=== PATIENT | female | born 1990 | race Caucasian/White ===

== ENCOUNTER 2018-03-04 11:08 | Inpatient (IN) | payer BC ==
[2018-03-04 11:35] VITALS: BMI 52.4
[2018-03-04] MEDS ORDERED: Docusate 100 MG CAP PO PRN (11:41)
[2018-03-04] MEDS ORDERED: HYDROcodone/Acetaminophen 5/325 mg Tablet PO PRN ×2 (11:41)
[2018-03-04] MEDS ORDERED: Promethazine HCl 25 MG/ML VIAL IM PRN (11:41)
[2018-03-04] MEDS ORDERED: Lidocaine 1% (PF) 30 ML VIAL SC PRN (11:41)
[2018-03-04] MEDS ORDERED: NS / Oxytocin 40 units/1000ml 1,000 ML IV PRN (11:41)
[2018-03-04] MEDS ORDERED: Ibuprofen 800 MG TAB PO PRN (11:41)
[2018-03-04] MEDS ORDERED: Butorphanol Tartrate 1 MG/ML VIAL SLOW IVP PRN (11:41)
[2018-03-04] MEDS ORDERED: Ondansetron PF 4 MG/2 ML Vial IVP PRN (11:41)
[2018-03-04] MEDS ORDERED: Misoprostol 100 MCG TAB VAG SCH (11:45)
[2018-03-04] MEDS ORDERED: NS w/ Oxytocin 10 units 500 ML IV SCH (11:45)
--- NOTE | 2018-03-04 11:45 | PDOC.LDHP ---
Labor and Delivery H&P Chief complaint: scheduled induction (increase BP) Current gestational age (weeks): 38 Due date: 03/15/18 Dating criteria: last menstrual period, first trimester ultrasound Grav: 1 Para: 0 Current complications: hypertension, other (obesity) Abnormal US findings: No Past Medical History: obesity, CHTN Current medications: pre-guillermina vitamins, other (labetalol 100mg BID) Previous surgical history: none Allergies/Adverse Reactions: Allergies Allergy/AdvReac Type Severity Reaction Status Date / Time No Known Allergies Allergy Verified 03/04/18 11:31 Social history: none - Physical Exam General: resting Heart: RRR Abdomen: gravid Extremeties: trace edema - OB Labs Blood type: O RH: positive Antibody Screen: negative HIV: negative RPR: negative HEPSAg: negative 1 hour GCT: negative GBS: negative Rubella: immune - Assessment L&D Assessment: medically indicated induction (CHTN w increase in BP) - Plan Plan: admit to L&D, cervical ripening, informed consent obtained, anesthesia consult for pain management -: A/P: G1 @ 38 weeks with obesity and CHTN usually well controlled w labetalol. Office BP today markedly increased from baseline. Discussed indication for IOL. SVE difficult in office due to habitus. Awaiting L and D SVE, cytotec vs pitocin discussed with pt in office. Magnesium if severe features noted, denies UNDERCOVER AGENT sx at this time.
[2018-03-04] MEDS: Lactated Ringer's 1,000 ML IV SCH ×2 (11:51→18:07)
[2018-03-04 12:05] LABS: Hemoglobin 12.2 g/dL (12.0-16.0); Mean Corpuscular HGB CONC 34.4 g/dL (32.0-36.0); Mean Corpuscular Hemoglobin 30.4 pg (27.0-31.0); Mean Corpuscular Volume 88.5 fL (78.0-98.0); Mean Platelet Volume 8.8 fL (7.4-10.4); Platelet Count 255 thou/uL (130-400); RBC Distribution Width 12.7 % (11.5-14.5); Red Blood Cell (RBC) Count 4.02 mill/uL (4.20-5.40); White Blood Cell (WBC) Count 10.8 thou/uL (4.8-10.8)
[2018-03-04 12:24] LABS: ALT (SGPT) 11 U/L (8-55); AST (SGOT) 14 U/L (5-34); Albumin 3.4 g/dL (3.5-5.0); Alkaline Phosphatase 95 U/L (40-150); Anion Gap 13 mmol/L (10-20); BUN (Urea Nitrogen) 6 mg/dL (7.0-18.7); Bilirubin, Total 0.9 mg/dL (0.2-1.2); Calc. Creatinine Clearance 297 mL/min (70-130); Calcium 9.5 mg/dL (7.8-10.44); Carbon Dioxide 22 mmol/L (22-29); Chloride 107 mmol/L (98-107); Estimated GFR-MDRD Greater than 90; Globulin 2.6 g/dL (2.4-3.5); Glucose 116 mg/dL (70-105); Potassium 4.2 mmol/L (3.5-5.1); Sodium 138 mmol/L (136-145)
[2018-03-04 12:42] LABS: HBSAg Index 0.22 S/CO (0-0.99); Hep B Surf Ag Non-Reactive S/CO (NonReactive)
[2018-03-04] MEDS ORDERED: Misoprostol 100 MCG TAB ONE (17:18)
[2018-03-05] MEDS: Lactated Ringer's 1,000 ML IV SCH (00:08)
[2018-03-05] MEDS: NS w/ Oxytocin 10 units 500 ML IV SCH (05:51)
--- NOTE | 2018-03-05 08:49 | PDOC.LDPN ---
Labor & Delivery Progress Note - Subjective Subjective: comfortable - Objective Abnormal vital signs: systolic 160 noted this AM right before exam General: resting Dilation: 4 Effacement: 50% Station: -2 FHT: category 1 Hannibal contractions every: 2-5 AROM: clear fluid IUPC placed: yes FSE placed: yes - Assessment (1) 38 weeks gestation of Code(s): Z3A.38 - 38 WEEKS GESTATION OF Current Visit: Yes Status : Acute (2) Chronic hypertension Code(s): I10 - ESSENTIAL (PRIMARY) HYPERTENSION Current Visit: Yes Status: Acute Plan: continue plan of care, pitocin for augmentation -: A/P: 27yo P0 @ 38+ weeks here for IOL, sp cytotec x 2 last night from FT to 4cm. Pitocin started this AM, AROM. FSE and IUPC placed due to habitus and difficulty tracing fetus and monitoring ctx.
[2018-03-05] MEDS ORDERED: hydrALAZINE 20 MG/ML VIAL ONE (10:01)
[2018-03-05] MEDS ORDERED: Calcium Gluc 4.6 MEQ/10 ML (100 MG/ML) SLOW IVP PRN (10:05)
[2018-03-05] MEDS ORDERED: hydrALAZINE 20 MG/ML VIAL SLOW IVP PRN (10:07)
[2018-03-05] MEDS ORDERED: Magnesium Sulfate 20 gm/500 ml 20 GM/500 ML BAG ONE (10:08)
[2018-03-05] MEDS ORDERED: hydrALAZINE 20 MG/ML VIAL SLOW IVP SCH (10:30)
[2018-03-05] MEDS ORDERED: Magnesium Sulfate 20 GM/WATER 500 ML BAG IVPB SCH (10:30)
[2018-03-05] MEDS: Magnesium Sulfate 20 gm/500 ml 20 GM/500 ML BAG IVPB SCH ×2 (10:35→18:49)
[2018-03-05] MEDS ORDERED: Labetalol HCl 100 MG/20 ML VIAL SLOW IVP PRN (13:18)
[2018-03-05] MEDS ORDERED: Fentanyl 4 mcg/Bup 0.1% Cadd 100 ML ONE (14:02)
[2018-03-05] MEDS ORDERED: Ketorolac Tromethamine 30 MG/ML VIAL ONE ×2 (14:40→18:35)
[2018-03-05] MEDS ORDERED: Ondansetron PF 4 MG/2 ML Vial ONE ×2 (14:40→18:35)
[2018-03-05] MEDS ORDERED: Dexamethasone 20 MG/5 ML VIAL ONE (14:40)
[2018-03-05] MEDS ORDERED: PHENYLEPHRINE-NS 100 MCG/ML 10 ML SYRINGE ONE ×2 (14:40→18:35)
[2018-03-05] MEDS ORDERED: ePHEDrine/0.9% NaCl/PF SYRINGE 50 mg/10 ml SLOW IVP PRN (15:01)
[2018-03-05] MEDS ORDERED: Lactated Ringer's 500 ML IV PRN (15:01)
[2018-03-05] MEDS ORDERED: Eucerin (Mineral Oil/Petrolatum,White) 30 gm Jar TOP PRN ×2 (15:01→19:50)
[2018-03-05] MEDS ORDERED: Naloxone HCl 0.4 mg/ml Vial IVP PRN ×4 (15:01→19:50)
[2018-03-05] MEDS ORDERED: Communication Order-Pharmacy FS SCH ×2 (15:15→20:00)
[2018-03-05] MEDS ORDERED: Fentanyl 4 mcg/Bupivacaine 0.1% Cassette 100 ML EPIDURAL SCH (15:15)
[2018-03-05] MEDS ORDERED: Fentanyl 100 MCG/2 ML VIAL ONE (18:25)
[2018-03-05] MEDS ORDERED: Bupivacaine 0.5% 10 ML VIAL ONE (18:25)
[2018-03-05] MEDS ORDERED: Bicitra 30 ML UDCUP ONE (18:34)
[2018-03-05] MEDS ORDERED: Morphine PF 1 MG/ML SYR ONE ×2 (18:34→19:58)
[2018-03-05] MEDS ORDERED: CEFAZOLIN 2 GM/50 ML BAG ONE (18:34)
[2018-03-05] MEDS ORDERED: ePHEDrine/0.9% NaCl/PF SYRINGE 50 mg/10 ml ONE (18:35)
[2018-03-05] MEDS ORDERED: Dexamethasone 4 mg/ml Vial ONE (18:35)
[2018-03-05] MEDS ORDERED: Oxytocin 10 UNITS/ML VIAL ONE (18:35)
[2018-03-05] MEDS ORDERED: Azithromycin 1,000 MG in Sodium Chloride 0.9% 500 ML IVPB SCH (18:38)
--- NOTE | 2018-03-05 18:42 | PDOC.LDPN ---
Labor & Delivery Progress Note - Subjective Subjective: comfortable - Objective Vital signs reviewed and normal: yes General: resting Dilation: 6 Effacement: 75% Station: -2 FHT: category 1 Other exam findings: trace edema to knees, blood tinged urine - Assessment (1) 38 weeks gestation of Code(s): Z3A.38 - 38 WEEKS GESTATION OF Current Visit: Yes Status : Acute (2) Chronic hypertension Code(s): I10 - ESSENTIAL (PRIMARY) HYPERTENSION Current Visit: Yes Status: Acute Plan: other -: CHTN with superimposed preeclampsia, failure to progress and oliguria. Labs pending, phleb not able to collect. TO OR FOR 1CS.
[2018-03-05] MEDS ORDERED: Bicitra 30 ML UDCUP PO SCH (18:45)
[2018-03-05] MEDS ORDERED: CEFAZOLIN 2 GM/50 ML BAG IVPB SCH (18:45)
[2018-03-05] MEDS ORDERED: HYDROmorphone 2 MG/ML VIAL SLOW IVP PRN (19:50)
[2018-03-05] MEDS ORDERED: Naloxone HCl 0.4 mg/ml Vial IV PRN (19:50)
[2018-03-05] MEDS ORDERED: Ketorolac Tromethamine 30 MG/ML VIAL IVP PRN (19:50)
[2018-03-05] MEDS ORDERED: Promethazine HCl 25 MG/ML VIAL IM PRN (19:50)
[2018-03-05] MEDS ORDERED: Meperidine HCl/PF 25 MG/ML VIAL SLOW IVP PRN (19:50)
[2018-03-05] MEDS ORDERED: Ondansetron HCl/PF 4 MG/2 ML Vial IVP PRN (19:50)
[2018-03-05] MEDS ORDERED: diphenhydrAMINE 50 MG/ML VIAL IVP PRN (19:50)
[2018-03-05] MEDS ORDERED: L&D-Morphine 4 MG/ML VIAL SLOW IVP PRN (19:50)
[2018-03-05] MEDS ORDERED: Ondansetron PF 4 MG/2 ML Vial IVP PRN (19:50)
[2018-03-05] MEDS ORDERED: Promethazine HCl 25 MG SUPP PR PRN (19:50)
[2018-03-05] MEDS ORDERED: Ketorolac Tromethamine 30 MG/ML VIAL IVP SCH (20:00)
--- NOTE | 2018-03-05 20:03 | PDOC.OPDEL ---
OB Operative/Delivery Note Delivery Dr/Surgeon: Jake Assist: Carlos Hopson Pre-Delivery Diagnosis: arrest of dilation, medically indicated induction ( superimposed severe preeclampsia) Weeks gestation: 39 Anesthesia: epidural - Findings A Sex: female Weight: 6 lb 13 oz - 1 min: 8 - 5 min: 9 - Additional Findings/Plan Placenta delivered: manual removal findings: low transverse hysterotomy without extension, normal uterus, normal tubes, normal ovaries Estimated blood loss: 700ml Compilations/Other Findings: prevena placed Post delivery plan: recovery in LICU (magnesium recovery)
[2018-03-05 22:38] LABS: ALT (SGPT) 10 U/L (8-55); AST (SGOT) 18 U/L (5-34); Albumin 3.2 g/dL (3.5-5.0); Alkaline Phosphatase 99 U/L (40-150); Anion Gap 14 mmol/L (10-20); BUN (Urea Nitrogen) 7 mg/dL (7.0-18.7); Bilirubin, Total 1.5 mg/dL (0.2-1.2); Calc. Creatinine Clearance 326 mL/min (70-130); Calcium 8.4 mg/dL (7.8-10.44); Carbon Dioxide 16 mmol/L (22-29); Chloride 105 mmol/L (98-107); Estimated GFR-MDRD Greater than 90; Glucose 102 mg/dL (70-105); Potassium 3.9 mmol/L (3.5-5.1); Protein, Total 6.2 g/dL (6.0-8.3); Sodium 131 mmol/L (136-145)
--- NOTE | 2018-03-06 01:58 | OP ---
DATE OF PROCEDURE: 03/05/2018 PREOPERATIVE DIAGNOSES: 1. Induction of labor at 38 weeks gestation for superimposed preeclampsia. 2. Preeclampsia with severe features including elevated blood pressures and oliguria. 3. Arrest of dilation at 6 cm. POSTOPERATIVE DIAGNOSIS: Status post primary low-transverse section. PHOTO OPTICS TECHNICIAN: resident hall director, Dr. Velasquez and OB hospitalist, Que Gonzalez MD ESTIMATED BLOOD LOSS: 700 mL. COMPLICATIONS: None. URINE OUTPUT: 70 mL. POSTOPERATIVE FINDINGS: 1. Morbid obesity. 2. Pfannenstiel skin incision with Prevena wound VAC placed at the end of the case. 3. Low transverse hysterotomy without extension. 4. Normal-appearing uterus, tubes, and ovaries bilaterally. 5. Vigorous female infant, Apgars 8 and 9, weight 6 pounds 13 ounces. nursery. 6. Surgical site is hemostatic. DESCRIPTION OF PROCEDURE: The patient was taken back to the OR with IV fluids running and Kelley catheter was previously placed. Of note, prior to the section, the patient was noted to have oliguria with dark blood-tinged urine. The patient was placed in dorsal supine position with a left lateral tilt, and the abdomen and vagina were prepped and draped in normal fashion for section. The abdomen was tested for anesthesia and was found to be adequate. The surgeons were scrubbed in. After the patient was draped, a Pfannenstiel skin incision was then made with a scalpel. The skin incision was carried down through the subcutaneous layer until the fascia was reached. This was done primarily with Bovie cauterization and blunt dissection. Once the fascia was reached, it was incised in the midline and extended superolaterally using curved Santos scissors. Rosa clamps were then placed at the superior border of the fascia, which was sharply and bluntly dissected off the rectus abdominis muscles in both caudad and cephalad direction allowing adequate space for delivery of the infant. The rectus muscles were then bluntly . The peritoneum was bluntly entered and stretched laterally. An Yosvany O retractor was placed into the peritoneal cavity for retraction, visualization, and protection of the wound. A bladder flap was created and the bladder was dissected away from the planned hysterotomy site. A low transverse hysterotomy was made with a scalpel. Hysterotomy was then bluntly entered and stretched using the Zamora maneuver. The 's head was then delivered with gentle fundal pressure vertex through the hysterotomy without difficulty. The body was then delivered. The nose and mouth were suctioned. The cord was doubly clamped and cut. The infant was handed off to special care nurses in attendance. The placenta was delivered. The uterus was exteriorized, massaged to firm and cleared of clot and debris. The uterus was then returned to the abdominal cavity with the hysterotomy was closed with Monocryl suture in a running locked fashion. After the hysterotomy was closed, the uterus was noted to be firm. Hysterotomy was inspected with no areas of bleeding noted. Hysterotomy and paracolic gutters were irrigated and suction dry. Hysterotomy was then inspected again and no areas of bleeding were noted. The Yosvany retractor was removed from the abdominal cavity. The peritoneum, rectus muscle, and fascia were inspected with no bleeding noted. The rectus fascia was then reapproximated with PDS suture from corner to corner and tied separately in the midline. Subcutaneous layer was copiously irrigated and suctioned dried. It was inspected with no areas of bleeding noted. Subcutaneous layer was reapproximated in 2 layers with plain gut suture to close the space. After a subcutaneous layer was reapproximated, subcuticular layer was closed with sterile alonzo. A Prevena wound VAC prophylactic dressing was then placed over the incision and activated with good suction noted. The fundus was again massaged, noted to be firm. The patient was cleaned, dried, and taken to the recovery room in good condition with plans for postoperative magnesium recovery through 24 hours, close monitoring of her urine output. Her magnesium will remain at 1 g, and CMP and magnesium level are pending at this time. Job ID: [id number]
[2018-03-06] MEDS: Lactated Ringer's 1,000 ML IV SCH ×2 (03:03→09:05)
[2018-03-06 06:06] LABS: ALT (SGPT) 8 U/L (8-55); AST (SGOT) 17 U/L (5-34); Albumin 2.9 g/dL (3.5-5.0); Alkaline Phosphatase 92 U/L (40-150); Anion Gap 15 mmol/L (10-20); BUN (Urea Nitrogen) 7 mg/dL (7.0-18.7); Bilirubin, Total 1.3 mg/dL (0.2-1.2); Calc. Creatinine Clearance 360 mL/min (70-130); Calcium 8.3 mg/dL (7.8-10.44); Carbon Dioxide 17 mmol/L (22-29); Chloride 107 mmol/L (98-107); Estimated GFR-MDRD Greater than 90; Globulin 2.8 g/dL (2.4-3.5); Glucose 102 mg/dL (70-105); Potassium 4.2 mmol/L (3.5-5.1); Protein, Total 5.7 g/dL (6.0-8.3); Sodium 135 mmol/L (136-145)
[2018-03-06] MEDS: NS w/ Oxytocin 10 units 500 ML IV SCH (06:13)
[2018-03-06] MEDS ORDERED: Furosemide 20 MG/2 ML VIAL SLOW IVP ONE (08:30)
[2018-03-06 09:09] LABS: #Lymphocytes 1.7 thou/uL (1.20-3.40); #Monocytes 0.8 thou/uL (0.11-0.59); %Basophils 0.1 % (0.0-1.0); %Eosinophils 0.2 % (0.0-10.0); %Lymphocytes 9.5 % (21.0-51.0); %Monocytes 4.6 % (0.0-10.0); %Neutrophils 85.7 % (42.0-75.0); Hemoglobin 12.2 g/dL (12.0-16.0); Mean Corpuscular HGB CONC 34.2 g/dL (32.0-36.0); Mean Corpuscular Hemoglobin 30.6 pg (27.0-31.0); Mean Corpuscular Volume 89.7 fL (78.0-98.0); Mean Platelet Volume 9.2 fL (7.4-10.4); Platelet Count 237 thou/uL (130-400); Red Blood Cell (RBC) Count 3.98 mill/uL (4.20-5.40); White Blood Cell (WBC) Count 17.5 thou/uL (4.8-10.8)
--- NOTE | 2018-03-06 12:14 | PDOC.PP ---
Post Progress Note Post Day #: 1 Subjective: no VEGA, no GLAZE MAKER sx, minimal to no pain, feels like swelling has decreased in hands and feet, no SOB PO intake tolerated: yes Flatus: yes Ambulation: yes Weight Weight 345 lb - Physical Examination General: NAD (BP 130-140s/70-80s, one isolated 160 systolic early AM) Respiratory: non-labored breathing Abdominal: no distention Fundus firm & at: firm below umb Extremities: negative homans (B) (SCDs on) Skin: no rash (Prevena on and applied well, edema is now NONPITTING below knee, improved) Neurological: no gross focal deficits Psychiatric: A&Ox3, normal affect Result Diagrams: 03/06/18 05:31 03/06/18 05:31 Additional Labs: Post Labs Blood Type O POSITIVE 03/04/18 11:52 Hep Bs Antigen Non-Reactive S/CO (NonReactive) 03/04/18 11:52 (1) 38 weeks gestation of Code(s): Z3A.38 - 38 WEEKS GESTATION OF Status: Acute (2) Chronic hypertension Code(s): I10 - ESSENTIAL (PRIMARY) HYPERTENSION Status: Acute (3) Oliguria Code(s): R34 - ANURIA AND OLIGURIA Status: Acute (4) Pre-eclampsia superimposed on chronic hypertension Code(s): O11.9 - PRE-EXISTING HYPERTENSION WITH PRE-ECLAMPSIA, UNSP TRIMESTER Status: Acute - Assessment/Plan POD1 -SP CS for arrest of dilation w superimposed preecampsia -Continue mag @ 1gm an hour (decreased UOP) through 24hr PP -Cr normal this AM, lasix x 1 dose of 10mg IV given with good response with increased UOP -Continue Labetalol 100mg BID -Advance orders
[2018-03-06] MEDS: Magnesium Sulfate 20 gm/500 ml 20 GM/500 ML BAG IVPB SCH (13:39)
--- NOTE | 2018-03-06 16:41 | PDOC.EVN ---
Event Note - Event Note Event Note: OBGYN malt specifications control assistant: Patient Checkout note: Currently on MagSulfate in L&D: Per MD Jake check out...patient taking her Labetolol 100mg po BID as home meds. She will continue that while in house (Jake has put in the order), and continue until PP follow up per Jake.
[2018-03-06] MEDS: HYDROcodone/Acetaminophen 5/325 mg Tablet PO PRN (18:16)
[2018-03-06] MEDS: Ibuprofen 800 MG TAB PO SCH (18:17)
[2018-03-06] MEDS ORDERED: Ondansetron PF 4 MG/2 ML Vial IVP PRN (20:52)
[2018-03-06] MEDS ORDERED: Bisacodyl 10 MG SUPP PR PRN (20:52)
[2018-03-06] MEDS ORDERED: Adacel (T-DAP) 0.5 ML SYRINGE IM ONE (20:52)
[2018-03-06] MEDS ORDERED: Lanolin Ointment 7 GM TUBE TOP PRN (20:52)
[2018-03-06] MEDS ORDERED: diphenhydrAMINE 25 MG CAP PO PRN (20:52)
[2018-03-07] MEDS: Ferrous Sulfate 325 MG TAB PO SCH ×3 (03:13→22:28)
[2018-03-07] MEDS: Docusate Calcium (SURFAK) 240 MG CAP PO SCH ×3 (03:13→22:26)
[2018-03-07] MEDS: Prenatal Vitamin 1 TAB PO SCH ×2 (03:13→08:12)
[2018-03-07] MEDS: Labetalol 100 MG TAB PO SCH ×4 (03:15→22:27)
[2018-03-07] MEDS: Ibuprofen 800 MG TAB PO SCH ×3 (04:32→22:27)
[2018-03-07] MEDS: HYDROcodone/Acetaminophen 5/325 mg Tablet PO PRN ×3 (04:33→19:45)
[2018-03-07] MEDS ORDERED: Sodium Chloride 0.9% 10 ML ONE (04:36)
--- NOTE | 2018-03-07 06:06 | PDOC.PP ---
Post Progress Note Post Day #: 2 s/p 24 hours magnesium sulfate Subjective: Doing well, attempting to BF; was taking her home labetolol meds 100mg po BID yesterday PO intake tolerated: yes Flatus: yes Ambulation: yes Vital Signs (12 hours) Temp Pulse Resp BP BP Pulse Ox 03/07/18 04:15 98.3 F 97 20 128/84 03/07/18 03:15 99 03/07/18 00:00 98.2 F 99 18 127/62 03/06/18 22:02 97 03/06/18 21:10 98.7 F 99 20 125/73 97 03/06/18 21:09 98.7 F 99 20 125/73 97 Weight Weight 345 lb - Physical Examination General: NAD Cardiovascular: no m/r/g Respiratory: clear to auscultation bilaterally Abdominal: + bowel sounds, lochia, no distention, appropriately TTP Extremities: negative homans (B) Deviation from normal: PRTEVENA wound vac in use; alonzo underneath per op report Neurological: no gross focal deficits Psychiatric: A&Ox3, normal affect Result Diagrams: 03/06/18 05:31 03/06/18 05:31 Additional Labs: Post Labs Blood Type O POSITIVE 03/04/18 11:52 Hep Bs Antigen Non-Reactive S/CO (NonReactive) 03/04/18 11:52 (1) delivery delivered Code(s): O82 - ENCOUNTER FOR DELIVERY WITHOUT INDICATION Status: Acute - Assessment/Plan Assessment and Plan: POD 2 s/p MagSulfate for CHTN and superimposed PIH...doing well. 1. I put in labetolol 100mg po BID into the MAR so that pharmacy is aware of her medication 2. Follow BPs today 3. Continue PREVENA for 7 days postop 4. Probable DSCH to home POD3
[2018-03-07] MEDS ORDERED: Labetalol 100 MG TAB PO SCH (07:00)
[2018-03-07] MEDS: Lactated Ringer's 1,000 ML IV SCH ×2 (07:20→07:21)
[2018-03-07] MEDS: NS w/ Oxytocin 10 units 500 ML IV SCH (07:21)
[2018-03-07 23:48] VITALS: TEMP 98.3
[2018-03-08] MEDS: Ibuprofen 800 MG TAB PO SCH ×2 (05:40→14:32)
--- NOTE | 2018-03-08 08:56 | DIS ---
DATE OF ADMISSION: 03/04/2018 DATE OF DISCHARGE: 03/08/2018 PREOPERATIVE DIAGNOSES: 1. Intrauterine at 38 weeks. 2. Hypertension with superimposed preeclampsia. DISCHARGE DIAGNOSES: Preeclampsia with severe features and arrest of dilation at 6 cm. PROCEDURE: Primary section. CONSULTATIONS: None. HOSPITAL COURSE: The patient is a 27-year-old female, who presented at 38 weeks' gestation for induction of labor secondary to chronic hypertension with superimposed preeclampsia. Her labor course was complicated by arrest at 6 cm and worsening of her disease with severe range blood pressures and oliguria. The patient had a primary for complete details. Please refer to the dictated note. Her postoperative course has been uncomplicated. The patient has been tolerating p.o., voiding on her own, having good pain control and decreased lochia. Blood pressures have been controlled on labetalol 100 mg twice a day. Today is hospital day #3. PHYSICAL EXAMINATION: VITAL SIGNS: Current blood pressure is 120/61, pulse of 95, respiratory rate 18, and temperature 98.3. GENERAL: She appears to be in no acute distress. She is alert, oriented, cooperative, and pleasant to interact with. HEENT: Head is normocephalic and atraumatic. ABDOMEN: Fundus is firm. Her incision is covered with Prevena wound VAC and incision has alonzo. The patient will be discharged to home with Tylenol No. 3 and ibuprofen. She has instructions to follow up with primary OB before this coming for staple removal. She has been given instructions to seek medical attention should she experience increasing pain, fever, redness, or drainage from her incision site. Job ID: [id number]
[2018-03-08] MEDS: Docusate Calcium (SURFAK) 240 MG CAP PO SCH (09:25)
[2018-03-08] MEDS: Labetalol 100 MG TAB PO SCH (09:26)
[2018-03-08] MEDS: Ferrous Sulfate 325 MG TAB PO SCH (09:26)
[2018-03-08 09:27] VITALS: BP 128/72
[2018-03-08] MEDS: Prenatal Vitamin 1 TAB PO SCH (09:27)
== END 2018-03-08 15:55 | disposition home or self-care (01) | DRG 788 ==
LOC: L&D 11:08 → 3SW 03-06 21:09
PROVIDERS: ADMIT Obstetrics & Gynecology; ATTEND Obstetrics & Gynecology
PROC: 10H07YZ Insertion of Other Device into Products of Conception, Via Natural or Artificial Opening (ICD-10-PCS; 2018-03-05)
PROC: 4A1H74Z Monitoring of Products of Conception, Cardiac Electrical Activity, Via Natural or Artificial Opening (ICD-10-PCS; 2018-03-05)
PROC: 10907ZC Drainage of Amniotic Fluid, Therapeutic from Products of Conception, Via Natural or Artificial Opening (ICD-10-PCS; 2018-03-05)
PROC: 4A1HX4Z Monitoring of Products of Conception, Cardiac Electrical Activity, External Approach (ICD-10-PCS; 2018-03-05)
PROC: 10D00Z1 Extraction of Products of Conception, Low, Open Approach (ICD-10-PCS; principal; 2018-03-06)
DX: O11.4 Pre-existing hypertension with pre-eclampsia, complicating childbirth (principal); O10.92 Unspecified pre-existing hypertension complicating childbirth; Z3A.38 38 weeks gestation of pregnancy; Z37.0 Single live birth; O62.1 Secondary uterine inertia; O99.214 Obesity complicating childbirth; E66.01 Morbid (severe) obesity due to excess calories
CPT/HCPCS: 36415; 51702; 80053; 83735; 85025; 85027; 86850; 86900; 86901; 87340; J0360; J0456; J1100; J1885; J1940; J2274; J2405; J2590; J3010; J3475; J3490; J7050

== ENCOUNTER → 2020-01-18 | Outpatient (CLI) | payer BC | LOC: SLEEPLAB 18:00 | PROVIDERS: ATTEND Family Medicine | DX: G47.33 Obstructive sleep apnea (adult) (pediatric) (principal); R53.83 Other fatigue; E66.9 Obesity, unspecified; I10 Essential (primary) hypertension; G47.00 Insomnia, unspecified; Z68.43 Body mass index [BMI] 50.0-59.9, adult | CPT/HCPCS: 95806 ==

== ENCOUNTER 2023-05-12 | Outpatient (CLI) | payer BC | END 2023-05-12 13:25 | disposition home or self-care (01) | DX: R19.00 Intra-abdominal and pelvic swelling, mass and lump, unspecified site (principal); L90.5 Scar conditions and fibrosis of skin ==